=== PATIENT | male | born 1990 | race Two or more races ===

== ENCOUNTER 2017-08-17 16:16 | Emergency (ER) | payer OTHER ==
[~2017-08-17] VITALS: Ht 165.1 cm; Wt 77.6 kg
[2017-08-17 16:18] VITALS: BP 150/94
[2017-08-17] MEDS ORDERED: CYCLOBENZAPRINE 10 MG TABLET PO STA (19:38)
[2017-08-17] MEDS ORDERED: HYDROcodone/APAP 5/325 TABLET PO STA (19:38)
[2017-08-17] MEDS ORDERED: HYDROcodone/APAP 5/325 TABLET ONE (19:42)
[2017-08-17] MEDS ORDERED: CYCLOBENZAPRINE 10 MG TABLET ONE (19:42)
== END 2017-08-17 20:02 | disposition home or self-care (01) ==
LOC: EDSEX 16:16 → ED 19:45
DX: S16.1XXA Strain of muscle, fascia and tendon at neck level, initial encounter (principal); M51.36 Other intervertebral disc degeneration, lumbar region; M51.34 Other intervertebral disc degeneration, thoracic region; J45.909 Unspecified asthma, uncomplicated; V43.52XA Car driver injured in collision with other type car in traffic accident, initial encounter; Y93.89 Activity, other specified; Y92.89 Other specified places as the place of occurrence of the external cause; Y99.8 Other external cause status
CPT/HCPCS: 72020; 72072; 72110; 72125; 99284